=== PATIENT | female | born 1985 | race Hispanic/Latino ===

== ENCOUNTER 2018-06-18 17:21 | Emergency (ER) | payer OTHER ==
[2018-06-18] MEDS ORDERED: CATAPRES ONE (17:44)
[2018-06-18] MEDS ORDERED: CATAPRES PO ONE (17:47)
--- NOTE | 2018-06-18 19:13 | XRay Report ---
FINAL REPORT EXAM: XR ANKLE 3+V LT HISTORY: swelling, limited range of motion TECHNIQUE: AP, lateral, and oblique views of the left ankle PRIORS: None. FINDINGS: There is no evidence for acute fracture or dislocation. There is mild soft tissue swelling laterally. No radiopaque foreign bodies are seen. The ankle mortise is intact. Bony mineralization is normal and joint spaces are maintained. Spurring off the posterior and plantar aspects of the calcaneus is seen. IMPRESSION: No acute bony abnormality noted. Mild lateral soft tissue swelling.
[2018-06-18 20:11] VITALS: BP 183/117
[2018-06-18] MEDS ORDERED: HCTZ PO ONE ×2 (20:20→21:01)
[2018-06-18] MEDS ORDERED: TYLENOL PO ONE (20:22)
[2018-06-18] MEDS ORDERED: MOTRIN PO ONE (20:22)
--- NOTE | 2018-06-18 21:07 | Emergency Department Report ---
ED General Adult HPI - General Chief complaint: Extremity Injury, Lower Stated complaint: BUSTED ANKLE/PAIN Time Seen by Provider: 06/18/18 20:19 Source: patient Mode of arrival: Ambulatory Limitations: No Limitations - History of Present Illness Initial comments: Pt rolled her ankle yesterday at work. Now is having out ankle pain. Able to walk on it. No h/o prior injuries/surgeries to the ankle. has been taking motrin for the pain. Of note, pt has been intermittently compliant with taking her hctz. Says that she just forgets sometimes. Denies CP, SOB, h/a. Doesn't have a PCP. Severity scale (0 -10): 0 - Related Data Previous Rx's Medication Instructions Recorded Last Taken Type Lisinopril/Hydrochlorothiazide 1 tab PO QDAY #30 tablet 06/10/14 07/06/14 Rx [Zestoretic 20-12.5 mg] Fluticasone [Flonase] 1 spray NS QDAY #1 bottle 07/08/14 Unknown Rx Sulfamethoxazole/Trimethoprim 1 each PO BID #20 tablet 07/08/14 Unknown Rx [Bactrim Ds] guaiFENesin/CODEINE [Robitussin AC] 5 - 10 ml PO Q4-6H PRN #50 ml 07/08/14 Unknown Rx Ciprofloxacin HCl [Ciprofloxacin 500 mg PO Q12HR #20 tab 09/20/17 Unknown Rx TAB] HYDROcodone/APAP 5-325 [[place] 1 - 2 each PO Q6HR PRN #10 tablet 09/20/17 Unknown Rx 5/325] Hydrochlorothiazide [HCTZ] 25 mg PO QDAY #90 tablet 09/20/17 Unknown Rx Ibuprofen [Motrin 800 MG tab] 800 mg PO Q8HR PRN #20 tablet 09/20/17 Unknown Rx Allergies Allergy/AdvReac Type Severity Reaction Status Date / Time No Known Allergies Allergy Verified 06/18/18 17:43 ED Review of Systems ROS: Stated complaint: BUSTED ANKLE/PAIN Other details as noted in HPI Comment: All other systems reviewed and negative Musculoskeletal: arthralgia ED Past Medical Hx - Past Medical History Previous Medical History?: Yes Hx Hypertension: Yes Hx Seizures: No - Surgical History Past Surgical History?: Yes Additional Surgical History: . TUBAL LIGATION - Social History Smoking Status: Never Smoker - Medications Home Medications: Home Medications Medication Instructions Recorded Confirmed Last Taken Type Lisinopril/Hydrochlorothiazide 1 tab PO QDAY #30 tablet 06/10/14 07/08/14 Rx [Zestoretic 20-12.5 mg] Fluticasone [Flonase] 1 spray NS QDAY #1 bottle 07/08/14 Unknown Rx Sulfamethoxazole/Trimethoprim 1 each PO BID #20 tablet 07/08/14 Unknown Rx [Bactrim Ds] guaiFENesin/CODEINE [Robitussin AC] 5 - 10 ml PO Q4-6H PRN #50 ml 07/08/14 Unknown Rx Ciprofloxacin HCl [Ciprofloxacin 500 mg PO Q12HR #20 tab 09/20/17 Unknown Rx TAB] HYDROcodone/APAP 5-325 [[place] 1 - 2 each PO Q6HR PRN #10 tablet 09/20/17 Unknown Rx 5/325] Hydrochlorothiazide [HCTZ] 25 mg PO QDAY #90 tablet 09/20/17 Unknown Rx Ibuprofen [Motrin 800 MG tab] 800 mg PO Q8HR PRN #20 tablet 09/20/17 Unknown Rx ED Physical Exam - General Limitations: No Limitations General appearance: alert, in no apparent distress, obese - Head Head exam: Present: atraumatic, normocephalic - Eye Eye exam: Present: normal appearance - ENT ENT exam: Present: mucous membranes moist - Neck Neck exam: Present: normal inspection - Respiratory Respiratory exam: Present: normal lung sounds bilaterally. Absent: respiratory distress - Cardiovascular Cardiovascular Exam: Present: regular rate, normal rhythm. Absent: systolic murmur, diastolic murmur, rubs, gallop - GI/Abdominal GI/Abdominal exam: Present: soft, normal bowel sounds. Absent: distended, tenderness, guarding, rebound, rigid - Extremities Exam Extremities exam: Present: normal inspection - Expanded Lower Extremity Exam Left Ankle exam: Present: tenderness, swelling (lateral malleolus pain/swelling. no skin changes. Lt foot is neurovasc intact. Ipsilateral knee is unremarkable. ) - Back Exam Back exam: Present: normal inspection - Neurological Exam Neurological exam: Present: alert, oriented X3 - Psychiatric Psychiatric exam: Present: normal affect, normal mood - Skin Skin exam: Present: warm, dry, intact, normal color. Absent: rash ED Course Vital Signs 06/18/18 06/18/18 06/18/18 17:38 17:43 18:53 Temperature 98.8 F Pulse Rate 88 Respiratory 18 Rate Blood Pressure 237/144 Blood Pressure 244/142 199/133 [Left] O2 Sat by Pulse 99 Oximetry 06/18/18 06/18/18 20:11 20:40 Temperature 98.4 F Pulse Rate 76 Respiratory 16 18 Rate Blood Pressure Blood Pressure 183/117 [Left] O2 Sat by Pulse 100 98 Oximetry ED Medical Decision Making - Radiology Data Radiology results: report reviewed, image reviewed - Medical Decision Making 32 yo female with pmhx HTN, noncompliant with her HCTZ presents with left ankle pain and HTN. VS significant for a BP of 230/144. Pt hasn't had her hctz in days. Had a h/a earlier in the day that has resolved. Was given clonidine 0.2 mg in triage. I gave her double of her normal hctz dose. At time of ER presentation, pt is asymptomatic of her HTN. XT left ankle unremarkable for fx. Likely pt has a strain. Given tylenol/motrin. Ankle had an TRACY wrap placed. She will take NSAIDs for pain control. Pt has been given a referral to the [facility] for further BP management. - Differential Diagnosis fracture, dislocation, subluxation, sprain, ICH, malignant HTN Critical care attestation.: If time is entered above; I have spent that time in minutes in the direct care of this critically ill patient, excluding procedure time. ED Disposition Clinical Impression: Left ankle sprain, Hypertension Disposition: DC-01 TO HOME OR SELFCARE Is pt being admited?: No Does the pt Need Aspirin: No Condition: Stable Instructions: Hypertension (ED) Additional Instructions: Please start taking your HCTZ as prescribed. Follow up with the [facility] for further management of your blood pressure. He can take 975 mg Tylenol and/or 800 mg Motrin every 6 hours as needed for pain relief. Referrals: [facility] [Outside] - 3-5 Days Forms: Work/School Release Form(ED)
== END 2018-06-18 23:13 | disposition home or self-care (01) ==
LOC: ED 17:21
DX: S93.402A Sprain of unspecified ligament of left ankle, initial encounter (principal); I10 Essential (primary) hypertension; Z98.51 Tubal ligation status; X58.XXXA Exposure to other specified factors, initial encounter; Y93.89 Activity, other specified; Y92.69 Other specified industrial and construction area as the place of occurrence of the external cause; Y99.8 Other external cause status
CPT/HCPCS: 99284

== ENCOUNTER 2018-11-30 10:57 | Outpatient (CLI) | payer OTHER | END 2018-11-30 10:58 | disposition home or self-care (01) | LOC: WOUND 10:57 ==

== ENCOUNTER 2018-12-07 10:55 | Outpatient (CLI) | payer OTHER ==
[2018-12-07] MEDS ORDERED: XYLOCAINE TOPICAL 4% TP ONE (12:12)
== END 2018-12-07 10:56 | disposition home or self-care (01) ==
LOC: WOUND 10:55
PROVIDERS: ATTEND Surgery
DX: L97.512 Non-pressure chronic ulcer of other part of right foot with fat layer exposed (principal); I87.8 Other specified disorders of veins

== ENCOUNTER 2018-12-14 10:53 | Outpatient (CLI) | payer OTHER | END 2018-12-14 10:54 | disposition home or self-care (01) | LOC: WOUND 10:53 ==

== ENCOUNTER 2018-12-21 10:35 | Outpatient (CLI) | payer OTHER | END 2018-12-21 10:36 | disposition home or self-care (01) | LOC: WOUND 10:35 ==

== ENCOUNTER 2018-12-28 10:45 | Outpatient (CLI) | payer OTHER | END 2018-12-28 10:46 | disposition home or self-care (01) | LOC: WOUND 10:45 ==

== ENCOUNTER 2019-01-04 10:21 | Outpatient (CLI) | payer OTHER | END 2019-01-04 10:22 | disposition home or self-care (01) | LOC: WOUND 10:21 | DX: L97.511 Non-pressure chronic ulcer of other part of right foot limited to breakdown of skin (principal) | CPT/HCPCS: 99215; G0463 ==

== ENCOUNTER 2019-03-02 17:16 | Emergency (ER) | payer OTHER ==
--- NOTE | 2019-03-02 17:38 | Emergency Department Report ---
Chief Complaint: Nausea/Vomiting/Diarrhea Stated Complaint: HEART FLUTTER/N/V Time Seen by Provider: 03/02/19 17:36 - HPI History of Present Illness: CO SHAKING FLUTTERING IN CHEST NO FARAH NO CP NO SOB PMH HTN RX HCTZ- OFF DONT WANT TO TAKE PSH TUBAL LMP 1ST OF MONTH PCP NONE MSE COMPLETED - Exam Vital Signs: Vital Signs 03/02/19 17:21 Temperature 98.5 F Pulse Rate 107 H Respiratory 18 Rate Blood Pressure 229/112 O2 Sat by Pulse 97 Oximetry MSE screening note: Focused history and physical exam performed. Due to findings the following was ordered: ED Disposition for MSE Condition: Stable
[2019-03-02 18:23] LABS: Hematocrit 40.5 % (30.3-42.9); Hemoglobin 13.8 gm/dl (10.1-14.3); Mean Corpuscular HGB Conc 34 % (30-34); Mean Corpuscular Volume 87 fl (79-97); Platelet Count 243 K/mm3 (140-440); Red Blood Count 4.66 M/mm3 (3.65-5.03)
[2019-03-02 18:53] LABS: HCG Qualitative,Urine Negative (Negative)
[2019-03-02 18:59] LABS: Bilirubin,Urine NEG (Negative); Blood,Urine SM (Negative); Color,Urine Yellow (Yellow); Mucus,Urine 1+ /HPF; Urobilinogen,Urine < 2.0 mg/dL (<2.0)
[2019-03-02 19:03] LABS: Alanine Aminotransferase 16 units/L (7-56); Albumin 4.1 g/dL (3.9-5); BUN/Creatinine Ratio 13; Blood Urea Nitrogen 9 mg/dL (7-17); Calcium 8.7 mg/dL (8.4-10.2); Hemolysis Index 3
[2019-03-02] MEDS ORDERED: CATAPRES PO STA (19:22)
--- NOTE | 2019-03-02 19:28 | Emergency Department Report ---
ED General Adult HPI - General Chief complaint: Nausea/Vomiting/Diarrhea Stated complaint: HEART FLUTTER/N/V Time Seen by Provider: 03/02/19 17:36 Source: patient Mode of arrival: Ambulatory Limitations: No Limitations - History of Present Illness Initial comments: 33-year-old obese female with past medical history of hypertension treated with hydrochlorothiazide which she is not been on for the past few days. Sensory emergency department complaining of feeling of jittery and shaking palpitation-like sensation to the chest. Palpitations, or give her the sensation of a butterfly in her chest and no sporadic and in nature and last for matter of minutes when present. There is no palliative or provocative factors. She denies any chest pain, shortness of breath, presyncope, headache, visual changes, hemoptysis, hematemesis, lotion, swelling, coryza, and medications. Symptoms primarily started last night and she's been having nausea for the past 2 days. -: Gradual Radiation: non-radiation Severity scale (0 -10): 10 Quality: aching - Related Data Previous Rx's Medication Instructions Recorded Last Taken Type HYDROcodone/APAP 5-325 [[place] 1 - 2 each PO Q6HR PRN #10 tablet 09/20/17 Unknown Rx 5-325 mg TAB] Naproxen [Naprosyn TAB] 500 mg PO BID PRN #20 tablet 10/19/18 Unknown Rx hydroCHLOROthiazide [HCTZ] 25 mg PO QDAY #30 tablet 10/19/18 Unknown Rx Clindamycin [Clindamycin CAP] 600 mg PO TID #42 capsule 11/18/18 Unknown Rx amLODIPine [Norvasc] 10 mg PO QDAY #30 tablet 11/18/18 Unknown Rx hydroCHLOROthiazide [HCTZ] 25 mg PO QDAY #30 tablet 11/18/18 Unknown Rx amLODIPine [Norvasc] 10 mg PO DAILY #30 tab 03/02/19 Unknown Rx Allergies Allergy/AdvReac Type Severity Reaction Status Date / Time No Known Allergies Allergy Verified 03/02/19 17:19 ED Review of Systems ROS: Stated complaint: HEART FLUTTER/N/V Other details as noted in HPI Constitutional: denies: chills, fever Eyes: denies: eye pain, eye discharge, vision change ENT: denies: ear pain, throat pain Respiratory: denies: cough, shortness of breath, wheezing Cardiovascular: palpitations. denies: chest pain Endocrine: no symptoms reported Gastrointestinal: denies: abdominal pain, nausea, diarrhea Genitourinary: denies: urgency, dysuria, discharge Musculoskeletal: denies: back pain, joint swelling, arthralgia Skin: denies: rash, lesions Neurological: denies: headache, weakness, paresthesias Psychiatric: denies: anxiety, depression Hematological/Lymphatic: denies: easy bleeding, easy bruising ED Past Medical Hx - Past Medical History Previous Medical History?: Yes Hx Hypertension: Yes Hx Congestive Heart Failure: No Hx Diabetes: No Hx Seizures: No Hx Asthma: No Hx COPD: No Hx HIV: No Additional medical history: CLOSED FX RIGHT FOOT - Surgical History Past Surgical History?: Yes Additional Surgical History: . TUBAL LIGATION - Social History Smoking Status: Current Every Day Smoker Substance Use Type: None - Medications Home Medications: Home Medications Medication Instructions Recorded Confirmed Last Taken Type HYDROcodone/APAP 5-325 [[place] 1 - 2 each PO Q6HR PRN #10 tablet 09/20/17 11/13/18 Unknown Rx 5-325 mg TAB] Naproxen [Naprosyn TAB] 500 mg PO BID PRN #20 tablet 10/19/18 11/13/18 Unknown Rx hydroCHLOROthiazide [HCTZ] 25 mg PO QDAY #30 tablet 10/19/18 11/13/18 Unknown Rx Clindamycin [Clindamycin CAP] 600 mg PO TID #42 capsule 11/18/18 Unknown Rx amLODIPine [Norvasc] 10 mg PO QDAY #30 tablet 11/18/18 Unknown Rx hydroCHLOROthiazide [HCTZ] 25 mg PO QDAY #30 tablet 11/18/18 Unknown Rx amLODIPine [Norvasc] 10 mg PO DAILY #30 tab 03/02/19 Unknown Rx ED Physical Exam - General Limitations: No Limitations General appearance: alert, in no apparent distress - Head Head exam: Present: atraumatic, normocephalic - Eye Eye exam: Present: normal appearance, PERRL, EOMI Pupils: Present: normal accommodation - ENT ENT exam: Present: normal exam, mucous membranes moist - Neck Neck exam: Present: normal inspection - Respiratory Respiratory exam: Present: normal lung sounds bilaterally. Absent: respiratory distress - Cardiovascular Cardiovascular Exam: Present: regular rate, normal rhythm. Absent: systolic murmur, diastolic murmur, rubs, gallop - GI/Abdominal GI/Abdominal exam: Present: soft, normal bowel sounds. Absent: tenderness, guarding, organomegaly, mass, bruit, pulsatile mass - Extremities Exam Extremities exam: Present: normal inspection, full ROM, normal capillary refill - Back Exam Back exam: Present: normal inspection. Absent: CVA tenderness (R), CVA tenderness (L), muscle spasm - Neurological Exam Neurological exam: Present: alert, oriented X3, CN II-XII intact, normal gait. Absent: motor sensory deficit, reflexes normal - Psychiatric Psychiatric exam: Present: normal affect, normal mood - Skin Skin exam: Present: warm, dry, intact, normal color. Absent: rash ED Course Vital Signs 03/02/19 03/02/19 03/02/19 17:21 19:40 20:47 Temperature 98.5 F Pulse Rate 107 H 93 H 89 Respiratory 18 16 Rate Blood Pressure 229/112 177/117 Blood Pressure 159/89 [Right] O2 Sat by Pulse 97 99 Oximetry ED Medical Decision Making - Lab Data Result diagrams: 03/02/19 17:57 03/02/19 17:57 - EKG Data Rate: tachycardia (rate 104) - EKG Data Interpretation: normal EKG (sinus tachycardia) - Medical Decision Making 3-year-old female, morbidly obese. There is no discharge from the hospital November 2018 started on Norvasc 10 mg, #30. Apparently has not filled the prescription due to her thing she was only supposed be taking hydrochlorothiazide. Currently, she is in good spirits, laughing, joking no acute Amilcar distressed. She she again denies chest pain, shortness of breath, presyncope, headache, visual changes. 9:44 PM. Patient feels normal symptoms is totally resolved complaints or concerns. Her blood pressure has improved with the medication given clonidine which may have been the culprit of her symptoms. Advised patient to obtain a primary care provider. She hasn't does not have one but she does have health insurance. I will give her the information. [facility] and underwent a heart for the evaluation. 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 ED Disposition Clinical Impression: Nausea, Jittery feeling Disposition: DC-01 TO HOME OR SELFCARE Is pt being admited?: No Does the pt Need Aspirin: No Condition: Stable Instructions: Acute Nausea and Vomiting (ED), Palpitations (ED) Prescriptions: amLODIPine [Norvasc] 10 mg PO DAILY #30 tab Referrals: LIGIA THOMPSON MD [Primary Care Provider] - 3-5 Days [facility] [Provider Group] - 3-5 Days Forms: Work/School Release Form(ED)
[2019-03-02 21:24] VITALS: BP 159/89
== END 2019-03-02 21:51 | disposition home or self-care (01) ==
LOC: ED 17:16
DX: R11.0 Nausea (principal); E66.01 Morbid (severe) obesity due to excess calories; I10 Essential (primary) hypertension; F17.200 Nicotine dependence, unspecified, uncomplicated; Z98.51 Tubal ligation status
CPT/HCPCS: 36415; 80053; 81001; 81025; 84443; 85027; 93005; 93010; 99283

== ENCOUNTER 2019-12-24 15:23 | Emergency (ER) | payer OTHER ==
--- NOTE | 2019-12-24 17:14 | Event Note ---
ED Screening Note ED Screening Note: CCC for 3 weeks. productive og green sputum. fever and chills. post tussive emesis, sob BP elevated dispite taking meds This initial assessment/diagnostic orders/clinical plan/treatment(s) is/are subject to change based on patients health status, clinical progression and re- assessment by fellow clinical providers in the ED. Further treatment and workup at subsequent clinical providers discretion. Patient/guardian urged not to elope from the ED as their condition may be serious if not clinically assessed and managed. Initial orders include: CXR
--- NOTE | 2019-12-24 17:50 | XRay Report ---
CHEST 2 VIEWS INDICATION / CLINICAL INFORMATION: Productive cough for 3 weeks. COMPARISON: 2 views of the chest from 07/08/2014. FINDINGS: SUPPORT DEVICES: None. HEART / MEDIASTINUM: No significant abnormality. LUNGS / PLEURA: No significant pulmonary or pleural abnormality. No pneumothorax. ADDITIONAL FINDINGS: No significant additional findings. IMPRESSION: No acute abnormality of the chest. Signer Name: Jacob Lanier MD Signed: 12/24/2019 5:46 PM Workstation Name: [id number]
[2019-12-24] MEDS ORDERED: cloNIDine 0.2 MG TAB PO ONE (19:25)
--- NOTE | 2019-12-24 19:25 | Emergency Department Report ---
HPI - General Chief Complaint: Upper Respiratory Infection Time Seen by Provider: 12/24/19 19:04 - HPI HPI: Room 40 The pt is a 34 y/o F p/w a cc of "sinus type thing and chest congestion." The pt states for 3 weeks, she's had facial pain, ears have been "clogged" and she's had a cough occ productive of white/green sputum for ~ 3 weeks. Pt c/o subj fever and rhinnorhea. Significant other has similar sxs. ED Past Medical Hx - Past Medical History Previous Medical History?: Yes Hx Hypertension: Yes Additional medical history: CLOSED FX RIGHT FOOT - Surgical History Past Surgical History?: Yes Additional Surgical History: . TUBAL LIGATION - Family History Family history: no significant - Social History Smoking Status: Current Every Day Smoker (/ ppd) Substance Use Type: None (denies illicit drug use) - Medications Home Medications: Home Medications Medication Instructions Recorded Confirmed Last Taken Type HYDROcodone/APAP 5-325 [[place] 1 - 2 each PO Q6HR PRN #10 tablet 09/20/17 11/13/18 Unknown Rx 5-325 mg TAB] Naproxen [Naprosyn TAB] 500 mg PO BID PRN #20 tablet 10/19/18 11/13/18 Unknown Rx hydroCHLOROthiazide [HCTZ] 25 mg PO QDAY #30 tablet 10/19/18 11/13/18 Unknown Rx Clindamycin [Clindamycin CAP] 600 mg PO TID #42 capsule 11/18/18 Unknown Rx amLODIPine 10 mg PO QDAY #30 tablet 11/18/18 Unknown Rx hydroCHLOROthiazide [HCTZ] 25 mg PO QDAY #30 tablet 11/18/18 Unknown Rx amLODIPine [Norvasc] 10 mg PO DAILY #30 tab 03/02/19 Unknown Rx Albuterol INH(or & Nicu Only) 2 puff IH QID PRN #8.5 gram 12/24/19 Unknown Rx [ProAir HFA Inhaler] Azithromycin [Zithromax Z-WENDY] 0 mg PO DAILY #6 tab 12/24/19 Unknown Rx Benzonatate [Tessalon Perles] 100 mg PO Q8HR #30 capsule 12/24/19 Unknown Rx Cyclobenzaprine [Flexeril] 10 mg PO TID PRN #10 tablet 12/24/19 Unknown Rx Ibuprofen [Motrin 800 MG tab] 800 mg PO Q8HR PRN #20 tablet 12/24/19 Unknown Rx ED Review of Systems ROS: Stated complaint: CHEST PAIN/FLU SYM/BODY PAIN Other details as noted in HPI Constitutional: fever (subj) Eyes: denies: eye pain ENT: congestion Respiratory: cough Cardiovascular: denies: chest pain Endocrine: no symptoms reported Gastrointestinal: denies: abdominal pain Genitourinary: denies: dysuria Musculoskeletal: myalgia Neurological: denies: headache Physical Exam - Physical Exam Vital Signs: Vital Signs 12/24/19 12/24/19 15:29 17:14 Temperature 97.9 F Pulse Rate 104 H Respiratory 16 Rate Blood Pressure 241/135 Blood Pressure 200/119 [Right] O2 Sat by Pulse 98 Oximetry Physical Exam: GEN: WD WN F sitting on stretcher in NAD HEENT: NCAT, EOMI, TMs clear bilat. TTP right frontal sinus (remainder def.) NECK:Trachea midline, no stridor CV: rrr no m/r/g Pulm: CTAB. no resp distress ABD: s/nt/nd +BS Neuro: GCS 15 SKIN: no diaphoresis MS: no evidence of acute injury ED Course Vital Signs 12/24/19 12/24/19 15:29 17:14 Temperature 97.9 F Pulse Rate 104 H Respiratory 16 Rate Blood Pressure 241/135 Blood Pressure 200/119 [Right] O2 Sat by Pulse 98 Oximetry ED Medical Decision Making - Radiology Data Radiology results: report reviewed (CXR), image reviewed (CXR) interpreted by me: CXR- no focal infiltrate, no ptx [facility] [address] [place] [address] XRay Report Signed Patient: TACOS PONCE MR#: [id number] : 1985 Acct:[id number] Age/Sex: 34 / F ADM Date: 12/24/19 Loc: ED Attending Dr: Ordering Physician: NALLELY DUGAN MD Date of Service: 12/24/19 Procedure(s): XR chest routine 2V Accession Number(s): [id number] cc: NALLELY DUGAN MD Fluoro Time In Minutes: CHEST 2 VIEWS INDICATION / CLINICAL INFORMATION: Productive cough for 3 weeks. COMPARISON: 2 views of the chest from 07/08/2014. FINDINGS: SUPPORT DEVICES: None. HEART / MEDIASTINUM: No significant abnormality. LUNGS / PLEURA: No significant pulmonary or pleural abnormality. No pneumothorax. ADDITIONAL FINDINGS: No significant additional findings. IMPRESSION: No acute abnormality of the chest. Signer Name: Jacob Lanier MD Signed: 12/24/2019 5:46 PM Workstation Name: [id number] Transcribed By: MN Dictated By: Jacob Lanier MD Electronically Authenticated By: Jacob Lanier MD Signed Date/Time: 12/24/191745 DD/ 44 TD/TT: - Differential Diagnosis sinusitis, bronchitis Critical care attestation.: If time is entered above; I have spent that time in minutes in the direct care of this critically ill patient, excluding procedure time. ED Disposition Clinical Impression: Sinusitis, Cough, Hypertension Disposition: - TO HOME OR SELFCARE Is pt being admited?: No Condition: Stable Instructions: Hypertension (ED) Prescriptions: Cyclobenzaprine [Flexeril] 10 mg PO TID PRN #10 tablet PRN Reason: Muscle Spasm Ibuprofen [Motrin 800 MG tab] 800 mg PO Q8HR PRN #20 tablet PRN Reason: Pain, Moderate (4-6) Albuterol INH(or & Nicu Only) [ProAir HFA Inhaler] 2 puff IH QID PRN #8.5 gram PRN Reason: Shortness Of Breath Benzonatate [Tessalon Perles] 100 mg PO Q8HR #30 capsule Azithromycin [Zithromax Z-WENDY] 0 mg PO DAILY #6 tab Referrals: [facility] [Outside] - [place] Time of Disposition: 19:31
[2019-12-24 19:38] VITALS: BP 197/117
== END 2019-12-24 20:00 | disposition home or self-care (01) ==
LOC: ED 15:23
DX: J32.9 Chronic sinusitis, unspecified (principal); R05 Cough; I10 Essential (primary) hypertension; F17.200 Nicotine dependence, unspecified, uncomplicated; Z98.890 Other specified postprocedural states; Z98.51 Tubal ligation status; Z79.899 Other long term (current) drug therapy
CPT/HCPCS: 71046

== ENCOUNTER 2020-11-28 17:19 | Emergency (ER) | payer OTHER ==
[2020-11-28 19:01] LABS: HCG Qualitative,Urine Negative (Negative)
[2020-11-28] MEDS ORDERED: HYDROmorphone 1 MG/1 ML INJ IV ONE (22:17)
[2020-11-28] MEDS ORDERED: dexAMETHasone 4 MG/ML VIAL IV ONE (22:17)
[2020-11-28] MEDS ORDERED: KETOROLAC 30 MG/1 ML INJ IV ONE (22:17)
[2020-11-28] MEDS ORDERED: ONDANSETRON 4 MG/2 ML INJ IV ONE (22:17)
--- NOTE | 2020-11-28 22:29 | Emergency Department Report ---
ED Headache HPI - General Chief Complaint: Headache Stated Complaint: HEAD/NECK PAIN Time Seen by Provider: 11/28/20 22:16 Source: patient, old records Exam Limitations: no limitations - History of Present Illness Initial Comments: Chief complaint: Headache HPI: This is a 35-year-old female with history of hypertension and frequent headaches who presents with headache and neck pain since last night. Gradual onset. Initially global dull throbbing headache. Now pain is mostly posterior rating down to the neck. She has pain stiffness when looking to the left. She denies fever. Denies sick contact. She denies visual changes. She denies numbness or weakness. Pain is severe. Denies pain in severity. Patient stated that last night her hearing was affected. Her ears felt full. She could not hear for a moment. She has nausea vomiting. She feels that she likely has migraine headaches. She was never given a formal diagnosis. According to electronic medical record patient was evaluated 2014 at this hospital for headache vomiting dizziness. Timing/Duration: 24 hours (1 day) Quality: moderate Head Injury Location: global Recent Head Trauma: frequent headaches Associated Symptoms: nausea/vomiting Allergies/Adverse Reactions: Allergies No Known Allergies Allergy (Verified 03/02/19 17:19) Home Medications: Ambulatory Orders HYDROcodone/APAP 5-325 [[place] 5-325 mg TAB] 1 - 2 each PO Q6HR PRN #10 tablet 09/20/17 Naproxen [Naprosyn TAB] 500 mg PO BID PRN #20 tablet 10/19/18 hydroCHLOROthiazide [HCTZ] 25 mg PO QDAY #30 tablet 10/19/18 Clindamycin [Clindamycin CAP] 600 mg PO TID #42 capsule 11/18/18 amLODIPine 10 mg PO QDAY #30 tablet 11/18/18 hydroCHLOROthiazide [HCTZ] 25 mg PO QDAY #30 tablet 11/18/18 amLODIPine [Norvasc] 10 mg PO DAILY #30 tab 03/02/19 Albuterol Mdi (or & Nicu Only) [ProAir HFA Inhaler] 2 puff IH QID PRN #8.5 gram 12/24/19 Azithromycin [Zithromax Z-WENDY] 0 mg PO DAILY #6 tab 12/24/19 Benzonatate [Tessalon Perles] 100 mg PO Q8HR #30 capsule 12/24/19 Cyclobenzaprine [Flexeril] 10 mg PO TID PRN #10 tablet 12/24/19 Ibuprofen [Motrin 800 MG tab] 800 mg PO Q8HR PRN #20 tablet 12/24/19 Promethazine [Phenergan] 25 mg PO Q6HR PRN #10 tab 11/28/20 amLODIPine 10 mg PO DAILY #90 tab 11/28/20 hydroCHLOROthiazide [HCTZ] 25 mg PO QDAY #90 tablet 11/28/20 ED Review of Systems ROS: Stated complaint: HEAD/NECK PAIN Other details as noted in HPI Comment: All other systems reviewed and negative Constitutional: denies: fever, malaise Eyes: denies: vision change Respiratory: denies: cough, shortness of breath Cardiovascular: denies: chest pain Gastrointestinal: nausea, vomiting. denies: abdominal pain Neurological: headache. denies: numbness, paresthesias ED Past Medical Hx - Past Medical History Previous Medical History?: Yes Hx Hypertension: Yes Hx Congestive Heart Failure: No Hx Diabetes: No Hx Seizures: No Hx Asthma: No Hx COPD: No Hx HIV: No Additional medical history: CLOSED FX RIGHT FOOT - Surgical History Past Surgical History?: Yes Additional Surgical History: . TUBAL LIGATION - Social History Smoking Status: Current Every Day Smoker Substance Use Type: None - Medications Home Medications: Home Medications Medication Instructions Recorded Confirmed Last Taken Type HYDROcodone/APAP 5-325 [[place] 1 - 2 each PO Q6HR PRN #10 tablet 09/20/17 11/13/18 Unknown Rx 5-325 mg TAB] Naproxen [Naprosyn TAB] 500 mg PO BID PRN #20 tablet 10/19/18 11/13/18 Unknown Rx hydroCHLOROthiazide [HCTZ] 25 mg PO QDAY #30 tablet 10/19/18 11/13/18 Unknown Rx Clindamycin [Clindamycin CAP] 600 mg PO TID #42 capsule 11/18/18 Unknown Rx amLODIPine 10 mg PO QDAY #30 tablet 11/18/18 Unknown Rx hydroCHLOROthiazide [HCTZ] 25 mg PO QDAY #30 tablet 11/18/18 Unknown Rx amLODIPine [Norvasc] 10 mg PO DAILY #30 tab 03/02/19 Unknown Rx Albuterol Mdi (or & Nicu Only) 2 puff IH QID PRN #8.5 gram 12/24/19 Unknown Rx [ProAir HFA Inhaler] Azithromycin [Zithromax Z-WENDY] 0 mg PO DAILY #6 tab 12/24/19 Unknown Rx Benzonatate [Tessalon Perles] 100 mg PO Q8HR #30 capsule 12/24/19 Unknown Rx Cyclobenzaprine [Flexeril] 10 mg PO TID PRN #10 tablet 12/24/19 Unknown Rx Ibuprofen [Motrin 800 MG tab] 800 mg PO Q8HR PRN #20 tablet 12/24/19 Unknown Rx Promethazine [Phenergan] 25 mg PO Q6HR PRN #10 tab 11/28/20 Unknown Rx amLODIPine 10 mg PO DAILY #90 tab 11/28/20 Unknown Rx hydroCHLOROthiazide [HCTZ] 25 mg PO QDAY #90 tablet 11/28/20 Unknown Rx ED Physical Exam - General Limitations: No Limitations General appearance: alert, in no apparent distress - Head Head exam: Present: atraumatic, normocephalic - Eye Eye exam: Present: normal appearance - ENT ENT exam: Present: mucous membranes moist - Neck Neck exam: Present: normal inspection, full ROM, other (Neck moves fluidly especially with conversation) - Respiratory Respiratory exam: Present: normal lung sounds bilaterally. Absent: respiratory distress, wheezes, rales, rhonchi - Cardiovascular Cardiovascular Exam: Present: regular rate, normal rhythm, normal heart sounds. Absent: systolic murmur, diastolic murmur, rubs, gallop - GI/Abdominal GI/Abdominal exam: Present: soft, normal bowel sounds. Absent: distended, tenderness, guarding, rebound - Extremities Exam Extremities exam: Present: normal inspection - Neurological Exam Neurological exam: Present: alert, oriented X3, normal gait - Psychiatric Psychiatric exam: Present: normal affect, normal mood - Skin Skin exam: Present: warm, dry, intact, normal color. Absent: rash ED Course Vital Signs 11/28/20 11/28/20 11/28/20 17:25 23:12 23:13 Temperature 98.1 F Pulse Rate 97 H Respiratory 20 18 18 Rate Blood Pressure 185/119 Blood Pressure [Left] O2 Sat by Pulse 98 Oximetry 11/28/20 11/28/20 11/29/20 23:42 23:43 00:45 Temperature 98.0 F Pulse Rate 112 H Respiratory 18 18 14 Rate Blood Pressure Blood Pressure 223/130 [Left] O2 Sat by Pulse 99 Oximetry 11/29/20 11/29/20 01:22 01:34 Temperature Pulse Rate 84 Respiratory 18 Rate Blood Pressure 189/113 Blood Pressure [Left] O2 Sat by Pulse Oximetry ED Medical Decision Making - Lab Data Result diagrams: 11/29/20 00:49 11/29/20 00:49 - Radiology Data Radiology results: report reviewed, image reviewed CT head/brain wo con INDICATION / CLINICAL INFORMATION: Patient complains of a severe headache. TECHNIQUE: Axial CT imaging of the brain was obtained without contrast. Coronal and sagittal reformatted imaging obtained and reviewed. All CT scans at this location are performed using CT dose reduction for ALARA by means of automated exposure control. COMPARISON: None available. FINDINGS: There is diffuse subarachnoid hemorrhage noted primarily in the sylvian fissures, [place], and in the prepontine cistern. Subarachnoid hemorrhage is also seen along the anterior interhemispheric falx. There is focal hemorrhage identified along the posterior aspect of the anterior interhemispheric falx in the expected location of the anterior cerebral artery or anterior communicating artery. This focal area of hemorrhage may represent ruptured aneurysm. Ventricular system is of normal size. There is no suggestion for impending herniation. However, there is loss of cerebral sulci bilaterally suggesting diffuse cerebral edema. No midline shift. Visualized paranasal sinuses and mastoid air cells are well aerated and clear. No calvarial abnormality. IMPRESSION: 1. Subarachnoid hemorrhage. There is focal hemorrhage in the expected location of the anterior communicating artery possibly representing ruptured aneurysm. 2. Loss of cerebral sulci bilaterally suggesting diffuse cerebral edema. CT cervical spine wo con INDICATION / CLINICAL INFORMATION: Patient complains of severe neck pain. TECHNIQUE: Axial CT imaging of the cervical spine was obtained without contrast. Coronal and sagittal reformatted imaging obtained and reviewed. All CT scans at this location are performed using CT dose reduction for ALARA by means of automated exposure control. COMPARISON: None available. FINDINGS: Vertebral body heights and disc spaces are fairly well-preserved. No significant osseous abnormality. No evidence of fracture or malalignment. Paravertebral soft tissues are grossly unremarkable. Visualized lung apices are unremarkable. IMPRESSION: 1. No significant normality of the cervical spine. - Medical Decision Making 1. Headache: SAH, likely ruptured aneurysm. My colleague took verbal report from radiologist regarding critical findings. I reassessed patient. Her headache has improved 6 out of 10. I ordered nicardipine and Keppra. Cyanide Case Hardener spoke with [facility] transfer center. Transfer center nurse confirmed that ICU capacity is not available at [facility]. I spoke with [facility] transfer nurse who put me in touch with neuro supervisor delivery department Dr. Araiza at [facility]a Law. He is set to the patient. He requested that the patient is flown for immediate attention considering severe hypertension. I stressed to the nurse that the goal of systolic blood pressure is to be less than 140 mm Hg. patient is GCS 15. She understands her diagnosis. ED health information clerk consulted to [employer]/medical flight services. Due to inclement weather, request for flight transport was declined. CBC chemistry PTT PT all within normal limits. Urinalysis urine test negative. Due to overall hospital saturation and increase EMS volume, emergent transfer was difficult to obtain. Cyanide Case Hardener contacted the head of [facility] who expedited transport outside of range. Blood pressure was difficult to control with nicardipine. Labetalol infusion was added. Critical Care Time: Yes Critical care time in (mins) excluding proc time.: 70 Critical care attestation.: If time is entered above; I have spent that time in minutes in the direct care of this critically ill patient, excluding procedure time. 70 minutes of critical care time excluding procedures were used in the care of the patient. My colleague informed me that patient has subarachnoid hemorrhage diagnosed per radiologist. I discussed treatment plan with the nursing team members. I reassessed patient. Her pain has improved. Patient required multiple interventions and reassessments. ED Disposition Clinical Impression: Subarachnoid hemorrhage, Hypertensive emergency Disposition: DC/TX-70 ANOTHER TYPE HLTHCARE Is pt being admited?: No Does the pt Need Aspirin: No Condition: Serious Instructions: Hypertension (ED) Prescriptions: amLODIPine 10 mg PO DAILY #90 tab hydroCHLOROthiazide [HCTZ] 25 mg PO QDAY #90 tablet Promethazine [Phenergan] 25 mg PO Q6HR PRN #10 tab PRN Reason: Nausea
[2020-11-28] MEDS ORDERED: levETIRAcetam 1000 MG/NS 0.75% 1,000 MG/100 ML BAG IV ONE (23:58)
[2020-11-28] MEDS ORDERED: niCARdipine DRIP 40 MG/200 ML BAG IV ONE (23:58)
--- NOTE | 2020-11-29 00:03 | Cat Scan Report ---
CT head/brain wo con INDICATION / CLINICAL INFORMATION: Patient complains of a severe headache. TECHNIQUE: Axial CT imaging of the brain was obtained without contrast. Coronal and sagittal reformatted imaging obtained and reviewed. All CT scans at this location are performed using CT dose reduction for ALATaisha A by means of automated exposure control. COMPARISON: None available. FINDINGS: There is diffuse subarachnoid hemorrhage noted primarily in the sylvian fissures, [place], a nd in the prepontine cistern. Subarachnoid hemorrhage is also seen along the anterior interhemispheri c falx. There is focal hemorrhage identified along the posterior aspect of the anterior interhemisphe jon falx in the expected location of the anterior cerebral artery or anterior communicating artery. T his focal area of hemorrhage may represent ruptured aneurysm. Ventricular system is of normal size. There is no suggestion for impending herniation. However, there is loss of cerebral sulci bilaterally suggesting diffuse cerebral edema. No midline shift. Visualized paranasal sinuses and mastoid air cells are well aerated and clear. No calvarial abnormality. IMPRESSION: 1. Subarachnoid hemorrhage. There is focal hemorrhage in the expected location of the anterior commun icating artery possibly representing ruptured aneurysm. 2. Loss of cerebral sulci bilaterally suggesting diffuse cerebral edema. CRITICAL RESULT: Time of Discovery: 2250 hours INSTALLMENT DEALER Time of Communication: 2253 hours INSTALLMENT DEALER Licensed Practitioner Receiving Report: Dr. Lea Read Back Performed: Yes. Signer Name: Bryanna Liang MD Signed: 11/28/2020 11:59 PM Workstation Name: [id number]
--- NOTE | 2020-11-29 00:06 | Cat Scan Report ---
CT cervical spine wo con INDICATION / CLINICAL INFORMATION: Patient complains of severe neck pain. TECHNIQUE: Axial CT imaging of the cervical spine was obtained without contrast. Coronal and sagittal reformatte d imaging obtained and reviewed. All CT scans at this location are performed using CT dose reduction for ALARA by means of automated exposure control. COMPARISON: None available. FINDINGS: Vertebral body heights and disc spaces are fairly well-preserved. No significant osseous abnormality. No evidence of fracture or malalignment. Paravertebral soft tissues are grossly unremarkable. Visualized lung apices are unremarkable. IMPRESSION: 1. No significant normality of the cervical spine. Signer Name: Bryanna Liang MD Signed: 11/29/2020 12:01 AM Workstation Name: [id number]
[2020-11-29] MEDS ORDERED: HYDROmorphone 1 MG/1 ML INJ IV ONE (01:16)
[2020-11-29 01:31] LABS: Alanine Aminotransferase 27 units/L (7-56); Albumin 4.6 g/dL (3.9-5); Blood Urea Nitrogen 12 mg/dL (7-17); Calcium 9.7 mg/dL (8.4-10.2); Hemolysis Index 1
[2020-11-29 01:32] LABS: BUN/Creatinine Ratio 20
[2020-11-29 01:35] VITALS: BP 189/113
[2020-11-29 01:36] LABS: Basophils % (Auto) 0.2 % (0.0-1.8); Hematocrit 44.1 % (30.3-42.9); Hemoglobin 14.9 gm/dl (10.1-14.3); Lymphocytes # (Auto) 0.9 K/mm3 (1.2-5.4); Lymphocytes % (Auto) 8.4 % (13.4-35.0); Mean Corpuscular HGB Conc 34 % (30-34); Mean Corpuscular Volume 89 fl (79-97); Monocytes # (Auto) 0.3 K/mm3 (0.0-0.8); Monocytes % (Auto) 3.1 % (0.0-7.3); Platelet Count 223 K/mm3 (140-440); Red Blood Count 4.94 M/mm3 (3.65-5.03); Red Cell Distribution Width 14.4 % (13.2-15.2)
[2020-11-29 01:40] LABS: INR 1.09 (0.87-1.13); Partial Thromboplastin Time 28.5 Sec. (24.2-36.6)
[2020-11-29] MEDS ORDERED: labetaloL 200 MG in DEXTROSE 5% IN WATER 160 ML IV ONE (01:44)
== END 2020-11-29 01:50 | disposition other institution (70) ==
LOC: ED 17:19
DX: I60.9 Nontraumatic subarachnoid hemorrhage, unspecified (principal); I16.1 Hypertensive emergency; I10 Essential (primary) hypertension; F17.200 Nicotine dependence, unspecified, uncomplicated; Z98.890 Other specified postprocedural states; Z98.51 Tubal ligation status; Z79.899 Other long term (current) drug therapy
CPT/HCPCS: 36415; 70450; 72125; 80053; 81025; 85025; 85610; 85730; 96365; 96367; 96375; 96376; 99291; J1100; J1170; J1885; J1953; J2405

== ENCOUNTER 2021-02-27 17:56 | Emergency (ER) | payer OTHER ==
[2021-02-27 18:16] VITALS: BP 197/98
--- NOTE | 2021-02-27 19:54 | Event Note ---
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 Further treatment and workup at subsequent clinical providers discretion. Patient/guardian urged not to elope from the ED as their condition may be serious if not clinically assessed and managed. Initial orders include: labs, UA, CT head
[2021-02-27 20:31] LABS: Basophils # (Auto) 0.1 K/mm3 (0.0-0.1); Basophils % (Auto) 0.7 % (0.0-1.8); Eosinophils # (Auto) 0.3 K/mm3 (0.0-0.4); Hematocrit 35.8 % (30.3-42.9); Lymphocytes # (Auto) 1.6 K/mm3 (1.2-5.4); Lymphocytes % (Auto) 23.1 % (13.4-35.0); Mean Corpuscular HGB Conc 34 % (30-34); Mean Corpuscular Volume 87 fl (79-97); Monocytes # (Auto) 0.7 K/mm3 (0.0-0.8); Monocytes % (Auto) 9.6 % (0.0-7.3); Platelet Count 216 K/mm3 (140-440); Red Blood Count 4.11 M/mm3 (3.65-5.03); Red Cell Distribution Width 14.5 % (13.2-15.2)
[2021-02-27 20:45] LABS: Bacteria,Urine 1+ /HPF (Negative); Bilirubin,Urine NEG (Negative); Blood,Urine NEG (Negative); Color,Urine Yellow (Yellow); Mucus,Urine 1+ /HPF
[2021-02-27 20:47] LABS: HCG Qualitative,Urine Negative (Negative)
[2021-02-27 20:54] LABS: Alanine Aminotransferase 19 units/L (7-56); Blood Urea Nitrogen 12 mg/dL (7-17); Calcium 9.1 mg/dL (8.4-10.2); Hemolysis Index 2
[2021-02-27 21:00] LABS: BUN/Creatinine Ratio 17
[2021-02-27] MEDS ORDERED: diphenhydrAMINE 25 MG CAP PO ONE (21:11)
[2021-02-27] MEDS ORDERED: ACETAMINOPHEN 500 MG TAB PO ONE (21:11)
[2021-02-27] MEDS ORDERED: METOCLOPRAMIDE 10 MG TAB PO ONE (21:11)
[2021-02-27] MEDS ORDERED: dexAMETHasone 20 MG/5 ML VIAL IM ONE (21:11)
--- NOTE | 2021-02-27 21:26 | Cat Scan Report ---
CT head/brain wo con INDICATION: headache, lightheaded, blurry vision, hx aneursym. TECHNIQUE: Routine CT head. All CT scans at this location are performed using CT dose reduction for A ANNA by means of automated exposure control. COMPARISON: 11/28/2020 CT head FINDINGS: Intracranial: Encephalomalacia from prior right ventricular catheter. Postoperative changes from coil ing of prior aneurysm seen region of a column. Lui-white matter differentiation is maintained. No in tracranial hemorrhage. No extra axial collection. No hydrocephalus. No herniation. Sinuses: Paranasal sinuses and mastoid air cells are essentially clear. Orbits: Globes are intact. Calvarium: Prior right frontal angelito hole.. IMPRESSION: 1. No acute intracranial abnormality. Signer Name: Davie Dsouza MD Signed: 02/27/2021 9:21 PM Workstation Name: [id number]
--- NOTE | 2021-02-27 21:36 | Emergency Department Report ---
ED General Adult HPI - General Chief complaint: Headache Stated complaint: MIGRAINE/DIZZY/BACK PAIN Time Seen by Provider: 02/27/21 19:51 Source: patient Mode of arrival: Ambulatory Limitations: No Limitations - History of Present Illness Initial comments: Patient 35-year-old female with history of brain aneurysm who presents for headache x3 days. This is her usual migraine headache for this patient. Same location same intensity and duration. Patient states associated photophobia, mild nausea, no dizziness, no lightheadedness, no shortness of breath, no back pain no fever or chills. Symptoms are exacerbated by activity. Symptoms are relieved by nothing tried. Patient does have neurology follow-up. hx of aneurysm in November 2020 and had coil placed at [facility]. other hx: of HTN on labetalol , no allergies to meds , LNMP: 01/27/2021 Severity scale (0 -10): 3 - Related Data Previous Rx's Medication Instructions Recorded Last Taken Type HYDROcodone/APAP 5-325 [[place] 1 - 2 each PO Q6HR PRN #10 tablet 09/20/17 Unknown Rx 5-325 mg TAB] Naproxen [Naprosyn TAB] 500 mg PO BID PRN #20 tablet 10/19/18 Unknown Rx hydroCHLOROthiazide [HCTZ] 25 mg PO QDAY #30 tablet 10/19/18 Unknown Rx Clindamycin [Clindamycin CAP] 600 mg PO TID #42 capsule 11/18/18 Unknown Rx amLODIPine 10 mg PO QDAY #30 tablet 11/18/18 Unknown Rx hydroCHLOROthiazide [HCTZ] 25 mg PO QDAY #30 tablet 11/18/18 Unknown Rx amLODIPine [Norvasc] 10 mg PO DAILY #30 tab 03/02/19 Unknown Rx Albuterol Mdi (or & Nicu Only) 2 puff IH QID PRN #8.5 gram 12/24/19 Unknown Rx [ProAir HFA Inhaler] Azithromycin [Zithromax Z-WENDY] 0 mg PO DAILY #6 tab 12/24/19 Unknown Rx Benzonatate [Tessalon Perles] 100 mg PO Q8HR #30 capsule 12/24/19 Unknown Rx Cyclobenzaprine [Flexeril] 10 mg PO TID PRN #10 tablet 12/24/19 Unknown Rx Ibuprofen [Motrin 800 MG tab] 800 mg PO Q8HR PRN #20 tablet 12/24/19 Unknown Rx Promethazine [Phenergan] 25 mg PO Q6HR PRN #10 tab 11/28/20 Unknown Rx amLODIPine 10 mg PO DAILY #90 tab 11/28/20 Unknown Rx hydroCHLOROthiazide [HCTZ] 25 mg PO QDAY #90 tablet 11/28/20 Unknown Rx Acetaminophen [Acetaminophen TAB] 1,000 mg PO Q6HR PRN #30 tablet 02/27/21 Unknown Rx Metoclopramide [Reglan] 10 mg PO Q6H PRN #12 tablet 02/27/21 Unknown Rx Nitrofurantoin [place]/M-Cryst 100 mg PO BID 7 Days #14 capsule 02/27/21 Unknown Rx [Macrobid CAP] diphenhydrAMINE [Benadryl CAP] 25 mg PO Q6HR PRN #15 capsule 02/27/21 Unknown Rx Allergies Allergy/AdvReac Type Severity Reaction Status Date / Time No Known Allergies Allergy Verified 03/02/19 17:19 ED Review of Systems ROS: Stated complaint: MIGRAINE/DIZZY/BACK PAIN Other details as noted in HPI Constitutional: denies: chills, fever Eyes: other (photophobia ). denies: eye pain ENT: denies: ear pain, throat pain Respiratory: denies: cough, shortness of breath, wheezing Cardiovascular: denies: chest pain, palpitations Endocrine: no symptoms reported Gastrointestinal: nausea. denies: abdominal pain, vomiting, diarrhea Genitourinary: denies: urgency, dysuria, discharge Musculoskeletal: denies: back pain, joint swelling, arthralgia Skin: denies: rash, lesions Neurological: headache, paresthesias (scalp ). denies: weakness, numbness, c onfusion, abnormal gait, vertigo Psychiatric: denies: anxiety, depression Hematological/Lymphatic: denies: easy bleeding, easy bruising ED Past Medical Hx - Past Medical History Hx Hypertension: Yes Hx Congestive Heart Failure: No Hx Diabetes: No Hx Seizures: No Hx Asthma: No Hx COPD: No Hx HIV: No Additional medical history: CLOSED FX RIGHT FOOT - Surgical History Additional Surgical History: . TUBAL LIGATION - Social History Smoking Status: Current Every Day Smoker Substance Use Type: None - Medications Home Medications: Home Medications Medication Instructions Recorded Confirmed Last Taken Type HYDROcodone/APAP 5-325 [[place] 1 - 2 each PO Q6HR PRN #10 tablet 09/20/17 11/13/18 Unknown Rx 5-325 mg TAB] Naproxen [Naprosyn TAB] 500 mg PO BID PRN #20 tablet 10/19/18 11/13/18 Unknown Rx hydroCHLOROthiazide [HCTZ] 25 mg PO QDAY #30 tablet 10/19/18 11/13/18 Unknown Rx Clindamycin [Clindamycin CAP] 600 mg PO TID #42 capsule 11/18/18 Unknown Rx amLODIPine 10 mg PO QDAY #30 tablet 11/18/18 Unknown Rx hydroCHLOROthiazide [HCTZ] 25 mg PO QDAY #30 tablet 11/18/18 Unknown Rx amLODIPine [Norvasc] 10 mg PO DAILY #30 tab 03/02/19 Unknown Rx Albuterol Mdi (or & Nicu Only) 2 puff IH QID PRN #8.5 gram 12/24/19 Unknown Rx [ProAir HFA Inhaler] Azithromycin [Zithromax Z-WENDY] 0 mg PO DAILY #6 tab 12/24/19 Unknown Rx Benzonatate [Tessalon Perles] 100 mg PO Q8HR #30 capsule 12/24/19 Unknown Rx Cyclobenzaprine [Flexeril] 10 mg PO TID PRN #10 tablet 12/24/19 Unknown Rx Ibuprofen [Motrin 800 MG tab] 800 mg PO Q8HR PRN #20 tablet 12/24/19 Unknown Rx Promethazine [Phenergan] 25 mg PO Q6HR PRN #10 tab 11/28/20 Unknown Rx amLODIPine 10 mg PO DAILY #90 tab 11/28/20 Unknown Rx hydroCHLOROthiazide [HCTZ] 25 mg PO QDAY #90 tablet 11/28/20 Unknown Rx Acetaminophen [Acetaminophen TAB] 1,000 mg PO Q6HR PRN #30 tablet 02/27/21 Unknown Rx Metoclopramide [Reglan] 10 mg PO Q6H PRN #12 tablet 02/27/21 Unknown Rx Nitrofurantoin [place]/M-Cryst 100 mg PO BID 7 Days #14 capsule 02/27/21 Unknown Rx [Macrobid CAP] diphenhydrAMINE [Benadryl CAP] 25 mg PO Q6HR PRN #15 capsule 02/27/21 Unknown Rx ED Physical Exam - General Limitations: No Limitations General appearance: alert, in no apparent distress - Head Head exam: Present: normocephalic, normal inspection - Eye Eye exam: Present: normal appearance, PERRL, EOMI. Absent: conjunctival injection, nystagmus Pupils: Present: normal accommodation - ENT ENT exam: Present: normal exam, normal orophraynx, mucous membranes moist, TM's normal bilaterally, normal external ear exam - Neck Neck exam: Present: normal inspection, full ROM. Absent: tenderness, meningism us, lymphadenopathy, thyromegaly - Expanded Neck Exam Expanded Neck exam: Absent: midline deformity, anterior neck swelling, thyroid mass, carotid bruit, tracheal deviation - Respiratory Respiratory exam: Present: normal lung sounds bilaterally. Absent: respiratory distress, wheezes, rales, rhonchi, stridor, chest wall tenderness - Cardiovascular Cardiovascular Exam: Present: regular rate, normal rhythm, normal heart sounds. Absent: systolic murmur, diastolic murmur, rubs, gallop - GI/Abdominal GI/Abdominal exam: Present: soft, normal bowel sounds. Absent: distended, tenderness, guarding, rebound, rigid - Rectal Rectal exam: Present: deferred - Extremities Exam Extremities exam: Present: normal inspection, full ROM, normal capillary refill. Absent: tenderness - Back Exam Back exam: Present: normal inspection, full ROM. Absent: tenderness, CVA tenderness (R), CVA tenderness (L), vertebral tenderness - Neurological Exam Neurological exam: Present: alert, oriented X3, CN II-XII intact, normal gait, reflexes normal. Absent: motor sensory deficit - Expanded Neurological Exam Expanded Patient oriented to: Present: person, place, time Speech: Present: fluid speech Cranial nerves: EOM's Intact: Normal, Gag Reflex: Normal, Tongue Deviation: Normal, Nystagmus: Normal, Facial Sensation: Normal Cerebellar function: Heel to [place]: Normal, [place]: Normal Motor strength exam: RUE: 5, LUE: 5, RLE: 5, LLE: 5 DTR: knee (R): 2+, knee (L): 2+ Best Eye Response (Michael): (4) open spontaneously Best Motor Response ([place]): (6) obeys commands Best Verbal Response (Michael): (5) oriented Michael Total: 15 - Psychiatric Psychiatric exam: Present: normal affect, normal mood - Skin Skin exam: Present: warm, dry, intact, normal color. Absent: rash ED Course Vital Signs 02/27/21 18:14 Temperature 98.3 F Pulse Rate 82 Respiratory 20 Rate Blood Pressure 197/98 O2 Sat by Pulse 96 Oximetry ED Medical Decision Making - Lab Data Result diagrams: 02/27/21 20:07 02/27/21 20:07 Labs 02/27/21 02/27/21 02/27/21 20:07 20:07 20:13 WBC 7.1 RBC 4.11 Hgb 12.0 Hct 35.8 MCV 87 MCH 29 MCHC 34 RDW 14.5 Plt Count 216 Lymph % (Auto) 23.1 [place] % (Auto) 9.6 H Eos % (Auto) 4.0 Baso % (Auto) 0.7 Lymph # (Auto) 1.6 [place] # (Auto) 0.7 Eos # (Auto) 0.3 Baso # (Auto) 0.1 Seg Neutrophils % 62.6 Seg Neutrophils # 4.4 Sodium 139 Potassium 4.6 Chloride 104.4 Carbon Dioxide 25 Anion Gap 14 BUN 12 Creatinine 0.7 Estimated GFR > 60 BUN/Creatinine Ratio 17 Glucose 90 Calcium 9.1 Magnesium 2.10 Total Bilirubin 0.60 AST 18 ALT 19 Alkaline Phosphatase 74 Total Creatine Kinase 64 Total Protein 6.5 Albumin 4.0 Albumin/Globulin Ratio 1.6 Lipase 12 L Urine Color Yellow Urine Turbidity Clear Urine pH 7.0 Ur Specific [place] 1.025 Urine Protein 30 mg/dl Urine Glucose (UA) Neg Urine Ketones Neg Urine Blood Neg Urine Nitrite Neg Urine Bilirubin Neg Urine Urobilinogen 4.0 Ur Leukocyte Esterase Tr Urine WBC (Auto) 7.0 H Urine RBC (Auto) 5.0 U Epithel Cells (Auto) 5.0 Urine Bacteria (Auto) 1+ Urine Mucus 1+ Urine HCG, Qual Negative - Radiology Data Radiology results: report reviewed, image reviewed CT head/brain wo con INDICATION: headache, lightheaded, blurry vision, hx aneursym. TECHNIQUE: Routine CT head. All CT scans at this location are performed using CT dose reduction for ALARA by means of automated exposure control. COMPARISON: 11/28/2020 CT head FINDINGS: Intracranial: Encephalomalacia from prior right ventricular catheter. Postoperative changes from coiling of prior aneurysm seen region of a column. Lui-white matter differentiation is maintained. No intracranial hemorrhage. No extra axial collection. No hydrocephalus. No herniation. Sinuses: Paranasal sinuses and mastoid air cells are essentially clear. Orbits: Globes are intact. Calvarium: Prior right frontal angelito hole.. IMPRESSION: 1. No acute intracranial abnormality. Signer Name: Davie Dsouza MD Signed: 02/27/2021 9:21 PM Workstation Name: [id number] Transcribed By: CS Dictated By: Davie Dsouza MD Electronically Authenticated By: Davie Dsouza MD Signed Date/Time: 02/27/212120 DD/ 19 TD/TT: - Medical Decision Making CT head no bleed no mass no postsurgical changes. No evidence of aneurysm. Urine noted for WBCs and leukocytes. Headache is improved with medications given in ED. Plan DC to home with prescriptions. Plan treat for UTI and headac he. Patient will follow up with neurology as scheduled. Patient will return to ED should symptoms worsen. Patient DC'd home in stable condition at this time. Critical care attestation.: If time is entered above; I have spent that time in minutes in the direct care of this critically ill patient, excluding procedure time. ED Disposition Clinical Impression: Headache Qualifiers: Headache type: unspecified Headache chronicity pattern: acute headache Intractability: not intractable Qualified Code(s): R51.9 - Headache, unspecified UTI (urinary tract infection) Qualifiers: Urinary tract infection type: acute cystitis Hematuria presence: without emigdio turia Qualified Code(s): N30.00 - Acute cystitis without hematuria Disposition: DC-01 TO HOME OR SELFCARE Is pt being admited?: No Does the pt Need Aspirin: No Condition: Stable Instructions: Urinary Tract Infection, Adult, Migraine Headache Additional Instructions: follow up with neurology in 2-3 days, return to emergency if symptoms worsen. Prescriptions: Acetaminophen [Acetaminophen TAB] 1,000 mg PO Q6HR PRN #30 tablet PRN Reason: Headache diphenhydrAMINE [Benadryl CAP] 25 mg PO Q6HR PRN #15 capsule PRN Reason: Headache Nitrofurantoin [place]/M-Cryst [Macrobid CAP] 100 mg PO BID 7 Days #14 capsule Metoclopramide [Reglan] 10 mg PO Q6H PRN #12 tablet PRN Reason: Headache Referrals: PAYTON VALLE MD [Referring] - 3-5 Days Forms: Work/School Release Form(ED) Time of Disposition: 21:51
== END 2021-02-27 22:00 | disposition home or self-care (01) ==
LOC: ED 17:56
DX: N39.0 Urinary tract infection, site not specified (principal); R51.9 Headache, unspecified; I10 Essential (primary) hypertension; F17.200 Nicotine dependence, unspecified, uncomplicated; Z79.899 Other long term (current) drug therapy; Z98.890 Other specified postprocedural states; Z98.51 Tubal ligation status
CPT/HCPCS: 36415; 70450; 80053; 81001; 81025; 82550; 83690; 83735; 85025; 96372; 99284; J1100